=== PATIENT | female | born 1965 | race Caucasian/White ===

== ENCOUNTER 2017-07-05 10:14 | Emergency (ER) | payer SELFPAY ==
[~2017-07-05] VITALS: Ht 165.1 cm; Wt 60.0 kg
[2017-07-05 10:19] VITALS: BP 143/77; PULSE 85; RESP 16; TEMP 97.3; O2SAT 97
[2017-07-05] MEDS ORDERED: ROBA500T PO (10:34)
[2017-07-05] MEDS ORDERED: IBUP1TAB7 PO (10:34)
--- NOTE | 2017-07-05 10:34 | PD ---
HPI Chief Complaint: Musculoskeletal Complaint Time Seen by Provider: 10:24 Travel History International Travel<30 days: No Contact w/Intl Traveler<30days: No Traveled to known affect area: No History of Present Illness HPI 51-year-old female presents to the emergency department with complaint of left lateral neck pain since last night. Says the left side of her neck keeps "popping." Denies injury or strain. Says she has taken on swimming recently for her chronic low back pain and does not know if maybe she injured her neck swimming. Denies fever, vomiting. Reports feeling nauseated last night. Denies paresthesias, loss of sensation, decreased range of motion, decreased strength to all extremities. Denies encopresis, incontinence, saddle anesthesias. Denies IV drug use or cancer. Rates pain 6/10. Worse in the morning when she wakes up, palpation, rotation of her neck to the left. Better throughout the day. Has been taking ibuprofen and Excedrin for symptom management. No primary care provider. Allergies to amoxicillin. History of chronic low back pain. Denies other significant past medical history. Has no other medical complaints. No other modifying factors or associated signs and symptoms. COUNT INCLUDES THE [facility] Social History Tobacco Use: No Allergies-Medications (Allergen,Severity, Reaction): Coded Allergies: amoxicillin (Verified Allergy, Unknown, 07/05/17) Reported Meds & Prescriptions Reported Meds & Active Scripts Active Ibuprofen 800 Mg Tab 800 Mg PO Q6HR PRN Robaxin (Methocarbamol) 500 Mg Tab 500 Mg PO QID PRN Review of Systems Except as stated in HPI: all other systems reviewed are Neg Physical Exam Narrative GENERAL: Well-nourished, well-developed female patient, in no acute distress SKIN: Warm and dry. HEAD: Atraumatic. Normocephalic. EYES: Pupils equal and round. No scleral icterus. No injection or drainage. ENT: Mucosa pink and moist. Airway patent. NECK: Trachea midline. No lymphadenopathy. No midline point tenderness on palpation of the cervical spine. Active rotation of the neck greater than 45 right, and just to approximately 45 to the left. Reproducible tenderness to the left lateral musculature of the neck. No obvious deformities. CARDIOVASCULAR: Regular rate. RESPIRATORY: No accessory muscle use. GASTROINTESTINAL: Flat. MUSCULOSKELETAL: No obvious deformities. No clubbing. No cyanosis. No edema. Normal gait. BACK: No point tenderness on palpation of thoracic spine. No obvious deformities. NEUROLOGICAL: Awake and alert. Oriented 3. No obvious cranial nerve deficits. Motor grossly within normal limits. Normal speech. Moves all extremities. 5/5 strength to all extremities. Bilateral upper extremities are supple and nontender with 2+ radial pulses and sensory intact and without erythema or edema. Bilateral upper extremities with full composite mechanic strength equally and push and pull strength. Sensory intact. PSYCHIATRIC: Appropriate mood and affect; insight and judgment normal. Data Data Last Documented VS Vital Signs Date Time Temp Pulse Resp B/P (MAP) Pulse Ox O2 Delivery O2 Flow Rate FiO2 07/05/17 10:19 97.3 85 16 143/77 (99) 97 Orders Orders Ketorolac Inj (Toradol Inj) (07/05/17 10:45) Orphenadrine Inj (Norflex Inj) (07/05/17 10:45) [facility] Medical Decision Making Medical Screen Exam Complete: Yes Emergency Medical Condition: Yes Medical Record Reviewed: Yes Differential Diagnosis Muscle spasm of neck, muscle strain of neck, acute neck pain Narrative Course 51-year-old female with muscle spasms of the left lateral musculature of the neck. Denies encopresis, incontinence, saddle anesthesias. Denies IV drug use or cancer. [place] C-Spine Rule suggests the C-Spine can be cleared clinically of fracture, and imaging is not required. There is no midline point tenderness on palpation of the cervical spine. The patient is able to actively rotate the neck 45 left and right. The patient is sitting up in bed at 90. The patient is ambulatory. Norflex and Toradol administered in the ER. Robaxin and ibuprofen prescribed for home. Instructed patient to follow up with primary care provider. Patient verbalizes understanding and agreement with treatment plan. Patient is medically cleared and stable for discharge. Discussed reasons to return to the emergency department. Patient agrees with treatment plan. The patients vital signs are stable and the patient is stable for outpatient follow-up and treatment. Patient discharged home, stable and in no acute distress. Diagnosis Primary Impression: Muscle spasms of neck Referrals: [facility] Primary Care Physician Patient Instructions: Acute Neck Pain (ED), General Instructions, Muscle Spasm (ED) Additional Instructions: Tylenol or ibuprofen as directed and as needed for pain Robaxin as prescribed and as needed for muscle spasms Heating pad and/or ice to affected area to reduce pain Avoid aggravating activities; increase activity as tolerated Follow-up with primary care provider Return to emergency department immediately with worsening of symptoms Med/Other Pt SpecificInfo: Prescription(s) given Scripts Ibuprofen (Ibuprofen) 800 Mg Tab 800 MG PO Q6HR Y for PAIN, #30 TAB 0 Refills Prov: Lisbet Benítez 07/05/17 Methocarbamol (Robaxin) 500 Mg Tab 500 MG PO QID Y for MUSCLE SPASM, #30 TAB 0 Refills Prov: Lisbet Benítez 07/05/17 Disposition: 01 DISCHARGE HOME Condition: Stable Lisbet Benítez Jul 05, 2017 10:34
[2017-07-05] MEDS ORDERED: ORPHENADRINE INJ 60 MG/2 ML AMP IM ONE (10:45)
[2017-07-05] MEDS ORDERED: KETOROLAC TROMETHAMINE 60 MG/2 ML (IM) VIAL IM ONE (10:45)
== END 2017-07-05 11:08 | disposition home or self-care (01) ==
LOC: NEPK 10:14
DX: M62.838 Other muscle spasm (principal); M54.2 Cervicalgia; G89.29 Other chronic pain; M54.5 Low back pain
CPT/HCPCS: 96372; 99283; J1885; J2360

== ENCOUNTER 2017-07-05 17:39 | Emergency (ER) | payer SELFPAY ==
[~2017-07-05] VITALS: Ht 165.1 cm; Wt 56.0 kg
[~2017-07-05 17:39] MED LIST: IBUP1TAB7 PO; ROBA500T PO
[2017-07-05 18:41] VITALS: BP 126/79; PULSE 67; RESP 17; TEMP 98.1; O2SAT 99
== END 2017-07-05 20:55 | disposition left against medical advice (07) ==
LOC: NEPD 17:39
DX: M54.2 Cervicalgia (principal)
CPT/HCPCS: 99281